=== PATIENT | female | born 1985 | race Two or more races ===

== ENCOUNTER 2018-03-04 14:21 | Emergency (ER) | payer OTHER ==
[2018-03-04 14:32] VITALS: BP 110/70
--- NOTE | 2018-03-04 15:28 | XRAY Report ---
Reason: twisted ankle Procedure Date: 03/04/2018 Accession Number: [id number] / [id number] Procedure: XR - Ankle 3 View LT CPT Code: FULL RESULT: EXAM: LEFT ANKLE RADIOGRAPHY EXAM DATE: 03/04/2018 02:56 PM. CLINICAL HISTORY: Twisted ankle. Pain to left ankle. COMPARISON: None. TECHNIQUE: 3 views. FINDINGS: Bones: Normal. No fractures or bone lesions. Joints: Normal. No effusion. No subluxations. The ankle mortise is normally aligned. Soft Tissues: Normal. No soft tissue swelling. IMPRESSION: Normal ankle radiography. [facility]
--- NOTE | 2018-03-04 15:48 | ED Physician Documentation ---
PD HPI LOWER EXT INJURY - Stated complaint Stated Complaint: LT ANKLE INJ - Chief complaint Chief Complaint: Ext Problem - History obtained from History obtained from: Patient - History of Present Illness PD HPI LOW EXT INJURY LOCATION: Left, Ankle Type of injury: Fall (fell from standing on counter and had inversion injury to ankle. Pain with walking.) Where injury occurred: Home Timing - onset: Today Timing - details: Abrupt onset, Still present Worsened by: Moving, Other (walking) Associated symptoms: Swelling. No: Weakness, Numbness Similar symptoms before: Has not had sx before Recently seen: Not recently seen Review of Systems Skin: denies: Abrasion (s), Laceration (s) Neurologic: denies: Focal weakness, Numbness, Head injury PD PAST MEDICAL HISTORY - Past Medical History : Chronic bladder infection, Other Musculoskeletal: None - Past Surgical History Past Surgical History: No - Present Medications Home Medications: Ambulatory Orders Medication Instructions Recorded Confirmed Loratadine [Claritin] 10 mg DAILY 03/04/18 03/04/18 Norethindrone-E.estradiol-Iron [Lo 1 tab DAILY 03/04/18 03/04/18 Loestrin Fe 1-10 Tablet] - Allergies Allergies/Adverse Reactions: Allergies Allergy/AdvReac Type Severity Reaction Status Date / Time No Known Drug Allergies Allergy Verified 02/26/15 13:52 - Social History Does the pt smoke?: No Smoking Status: Never smoker Does the pt drink ETOH?: No Does the pt have substance abuse?: No - Immunizations Immunizations are current?: No PD ED PE NORMAL - Vitals Vital signs reviewed: Yes - General General: Alert and oriented X 3, No acute distress, Well developed/nourished - Derm Derm: Normal color, Warm and dry - Extremities Extremities: Other (ankle tender anterolateral with small effusion. Not tender at Achilles, toes nor 5th MT area. No gross laxity on stress testing. ) - Neuro Neuro: No motor deficit, No sensory deficit Results - Vitals Vitals: Vital Signs - 24 hr 03/04/18 14:27 Temperature 36.6 C Heart Rate 75 Respiratory 16 Rate Blood Pressure 110/70 O2 Saturation 100 Oxygen O2 Source Room air - Rads (name of study) ankle Radiology: Prelim report reviewed (no acute fracture), EMP read contemporaneously PD MEDICAL DECISION MAKING - ED course Complexity details: considered differential (no fractures. Sprain - to use aircast and add crutches PRN. ), d/w patient - Sepsis Event Vital Signs: Vital Signs - 24 hr 03/04/18 14:27 Temperature 36.6 C Heart Rate 75 Respiratory 16 Rate Blood Pressure 110/70 O2 Saturation 100 Oxygen O2 Source Room air Departure - Departure Disposition: 01 Home, Self Care Clinical Impression: Ankle sprain Qualifiers: Encounter type: initial encounter Involved ligament of ankle: anterior talofibular ligament Laterality: left Qualified Code(s): S93.492A - Sprain of other ligament of left ankle, initial encounter Accidental fall Qualifiers: Encounter type: initial encounter Qualified Code(s): W19.XXXA - Unspecified fall, initial encounter Condition: Stable Record reviewed to determine appropriate education?: Yes Instructions: ED Sprain Ankle Comments: You can use compresses and, elevate, ice to reduce swelling. Tylenol or ibuprofen or naproxen if needed for pains. Use the ankle brace when up and around for the next several days to week or even 2 weeks as needed until fully healed. Crutches as needed for discomfort of weightbearing and progress weight as able. Recheck if not better over the next week. Discharge Date/Time: 03/04/18 16:18
[2018-03-04] MEDS ORDERED: IBUPROFEN 600 MG TABLET PO STA (15:57)
== END 2018-03-04 16:18 | disposition home or self-care (01) ==
LOC: ED 14:21
DX: S93.492A Sprain of other ligament of left ankle, initial encounter (principal); W17.89XA Other fall from one level to another, initial encounter; X50.1XXA Overexertion from prolonged static or awkward postures, initial encounter
CPT/HCPCS: 73610; 99281; 99283; A9270